=== PATIENT | male | born 1980 | race Two or more races ===

== ENCOUNTER 2023-02-15 22:09 | Emergency (ER) | payer SELFPAY ==
[~2023-02-15] VITALS: Ht 182.9 cm; Wt 100.0 kg
[2023-02-15 22:44] VITALS: BP 155/91; PULSE 116; RESP 16; TEMP 99; O2SAT 95
== END 2023-02-15 23:26 | disposition home or self-care (01) ==
LOC: EEVIPCON 22:09 → ER 22:09
DX: E11.65 Type 2 diabetes mellitus with hyperglycemia (principal)